=== PATIENT | female | born 1970 | race Caucasian/White ===

== ENCOUNTER 2017-05-31 20:20 | Emergency (ER) | payer OTHER ==
[2017-05-31 20:27] VITALS: BP 163/100; PULSE 112; TEMP 98.1; BMI 41.3
[2017-05-31] MEDS ORDERED: DEXAMETHASONE SOD PHOSPHATE 10 MG/1 ML VIAL IM ONE (20:34)
--- NOTE | 2017-05-31 20:47 | PDOC ---
History of Present Illness - History of Present Illness Initial Comments: 05/31/17 20:53 46 y/o F with a PMHx of anaphylaxis presents to the ED with symptoms of allergic reaction. Patient took a weight loss injection (Saxenda) today for the first time. Immediately after she states she didnt feel right. She took 2 Benadryl. She denies chest pain, SOB. PAST MEDICAL HISTORY: anaphylaxis PAST SURGICAL HISTORY: no significant history FAMILY HISTORY: no pertinent history SOCIAL HISTORY: Pt lives with family and is employed. MEDICATIONS: reviewed ALLERGIES: As per nursing notes Review of Systems: General: No fevers or chills, no weakness, no weight loss HEENT: No change in vision. No sore throat,. No ear pain CardioVascular: No chest pain or shortness of breath Respiratory: No cough, or wheezing. Gastrointestinal: no nausea, vomiting, diarrhea or constipation, No rectal bleeding Genitourinary: No dysuria, hematuria, or frequency Musculoskeletal: No joint or muscle pain or swelling Neurologic: No headache, vertigo, dizziness or loss of consciousness Psychiatric: No depression Skin: No rashes or easy bruising Endocrine: No increased thirst or abnormal weight change Allergic: (+) allergic reaction All other systems reviewed and normal Physical Exam: General: Well-nourished well-developed individual, no acute distress HEENT: Throat: Mild angioedema of uvula and posterior pharynx. Neck: Supple, no meningeal signs, no lymphadenopathy Eyes: Pupils equal reactive and round, extraocular motion intact Chest: Nontender to palpation Cardiac: S1-S2 normal, regular rate and rhythm, no murmurs rubs or gallops Respiratory: Lungs clear to auscultation bilateral Abdomen: Soft, nondistended, normal bowel sounds, nontender to palpation diffusely Extremities: Warm, dry, no cyanosis, clubbing, or edema Skin: No rashes Neuro: Alert and oriented x3, nonfocal exam, grossly intact, normal gait Psych: Normal mood and affect <Indira Carter - Last Filed: 05/31/17 20:53> - General History Source: Patient Exam Limitations: No Limitations - History of Present Illness Initial Comments: 05/31/17 20:47 A portion of this note was documented by scribe services under my direction. I have reviewed the details of the note, within reason, and agree with the documentation. The case summary and management plan written by me. Assessment and plan: This is a 46-year-old female who comes in complaining of a possible ALLERGIC reaction patient self injected a weight loss medication that she thinks she may be having a reaction to. Patient does have some very mild angioedema of her uvula and posterior oropharynx otherwise no rashes, abdominal pain, shortness of breath, wheezing or any other symptoms of an ALLERGIC reaction. Patient's vitals are stable here in the emergency room 05/31/17 22:24 Reevaluation symptoms minimally improved however not progressed and patient would like to be discharged home. Patient will be discharged with a short steroid course. Patient told to stop taking the weight loss medication and follow-up with her doctor next Monday <Alethea Brizuela I - Last Filed: 05/31/17 22:25> - General Chief Complaint: Allergic Reaction Stated Complaint: "I THINK IM HAVING AN ALLERGIC REACTION" Time Seen by Provider: 05/31/17 20:26 Past History <Indira Carter - Last Filed: 05/31/17 20:53> - Psycho/Social/Smoking Cessation Hx Anxiety: No Suicidal Ideation: No Smoking History: Unknown if ever smoked Have you smoked in the past 12 months: No Number of Cigarettes Smoked Daily: 0 Information on smoking cessation initiated: No Hx Alcohol Use: No Drug/Substance Use Hx: No Substance Use Type: None <Alethea Brizuela I - Last Filed: 05/31/17 22:25> - Past Medical History Allergies/Adverse Reactions: Allergies Allergy/AdvReac Type Severity Reaction Status Date / Time No Known Allergies Allergy Unverified 05/31/17 20:23 Home Medications: Ambulatory Orders NK [No Known Home Medication] 05/31/17 *Physical Exam - Vital Signs Last Vital Signs Temp Pulse Resp BP Pulse Ox 98.1 F 112 H 15 163/100 100 05/31/17 20:24 05/31/17 20:24 05/31/17 20:24 05/31/17 20:24 05/31/17 20:24 <Indira Carter - Last Filed: 05/31/17 20:53> - Vital Signs Last Vital Signs Temp Pulse Resp BP Pulse Ox 98.1 F 112 H 15 163/100 100 05/31/17 20:24 05/31/17 20:24 05/31/17 20:24 05/31/17 20:24 05/31/17 20:24 <Alethea Brizuela I - Last Filed: 05/31/17 22:25> ED Treatment Course - Medications Given in the ED: ED Medications Discontinued Medications Generic Name Dose Route Start Last Admin Trade Name Mil PRN Reason Stop Dose Admin Dexamethasone Sodium Phosphate 10 mg 05/31/17 20:34 05/31/17 20:46 Decadron Injection - IM 05/31/17 20:35 10 mg ONCE ONE Administration <Indira Carter - Last Filed: 05/31/17 20:53> *DC/Admit/Observation/Transfer - Attestations Scribe Attestion: 05/31/17 20:53 Documentation prepared by Indira Carter, acting as medical geneticist for Alethea Brizuela MD. <Indira Carter - Last Filed: 05/31/17 20:53> - Discharge Dispostion Admit: No <Alethea Brizuela I - Last Filed: 05/31/17 22:25> Diagnosis at time of Disposition: Allergic reaction to drug Qualifiers: Encounter type: initial encounter Qualified Code(s): T78.40XA - Allergy, unspecified, initial encounter - Discharge Dispostion Disposition: HOME Condition at time of disposition: Good - Patient Instructions Additional Instructions: Take prednisone 40 mg a day for the next 4 days. Stop the weight loss medication Return to the emergency department immediately with ANY new, persistent or worsening symptoms. Continue any medications as previously prescribed by your physician. You should follow up with your primary doctor as soon as possible regarding today's emergency department visit. . Please make sure your doctor reviews the results of your emergency evaluation. Thank you for coming to the Emergency Department today for your care. It was a pleasure to see you today. Please note that your evaluation is INCOMPLETE until you follow-up with your doctor.
== END 2017-05-31 22:38 | disposition home or self-care (01) ==
LOC: FER 20:20
PROC: 3E023GC Introduction of Other Therapeutic Substance into Muscle, Percutaneous Approach (ICD-10-PCS; principal; 2017-05-31)
DX: T78.40XA Allergy, unspecified, initial encounter (principal); X58.XXXA Exposure to other specified factors, initial encounter; Y93.89 Activity, other specified; Y92.9 Unspecified place or not applicable
CPT/HCPCS: 99282-25